=== PATIENT | female | born 1995 | race African-American/Black ===

== ENCOUNTER 2019-06-02 20:02 | Emergency (ER) | payer OTHER ==
[~2019-06-02] VITALS: Ht 160 cm; Wt 59.0 kg
[2019-06-02 20:44] LABS: URINE BILIRUBIN NEGATIVE (Negative); URINE BLOOD NEGATIVE (Negative); URINE CLARITY CLEAR; URINE COLOR YELLOW; URINE GLUCOSE-RANDOM NEGATIVE (Negative); URINE KETONES NEGATIVE (Negative); URINE LEUKOCYTES-REFLEX NEGATIVE (Negative); URINE NITRITE-REFLEX NEGATIVE (Negative); URINE PROTEIN NEGATIVE (Negative); URINE SPECIFIC GRAVITY 1.015 (1.005-1.030); URINE UROBILINOGEN 0.2 E.U./dl (0.2-1.0)
[2019-06-02] MEDS ORDERED: PRILOSEC OTC20 MG PO (21:49)
[2019-06-02] MEDS ORDERED: HYDROCODON-ACE1 EAC8 PO (21:49)
[2019-06-02] MEDS ORDERED: INDOMETHACIN 2525 MG PO (21:49)
[2019-06-02 22:02] VITALS: BP 110/68
--- NOTE | 2019-06-05 17:00 | EKG ---
[place] [address] ELECTROCARDIOGRAM REPORT Name: CARLOSMARSHA FRAN Room: [facility]#: [id number] Admission: 06/02/19 Attend Phys: Discharge: 06/02/19 Date of : [birth year] Report #: [id number] THIS REPORT FOR: //name// [facility] ED Test Date: 2019-06-02 Test Time: 20:12:36 Pat Name: MARSHA GONZALEZ Department: Room: Gender: F [employer]: [place]ES[place] : 1995 Requested By: Adilene Doherty Order Number: [id number] Reading MD: Markie Giordano Measurements Intervals [place] Rate: 94 P: 43 PA: 168 QRS: 78 QRSD: 95 T: 0 QT: 378 QTc: 473 Interpretive Statements Sinus rhythm RSR' in V1 or V2, probably normal variant Borderline T abnormalities, anterior leads Baseline wander in lead(s) V5 No previous ECG available for comparison Electronically Signed On 06-05-2019 17:00:03 SENIOR MEDICAL TRANSCRIPTIONIST by Markie Giordano [email or web address] <ELECTRONICALLY SIGNED> By: Markie Giordano MD, [facility] 06/05/19 1700 2012 11 Markie Giordano MD, FACC /EPI
== END 2019-06-02 22:02 | disposition home or self-care (01) ==
LOC: M.ERS 20:02
PROVIDERS: Emergency Medicine
DX: R07.89 Other chest pain (principal); R10.13 Epigastric pain